=== PATIENT | female | born 1965 | race Caucasian/White ===

== ENCOUNTER 2018-05-23 11:09 | Outpatient (CLI) | payer OTHER, SELFPAY ==
[2018-05-23 11:51] LABS: Bilirubin Negative (Negative); Blood Trace-intact (Negative); Clarity Clear; Glucose Negative (Negative); Ketones Negative (Negative); Leukocyte Esterase Trace (Negative); Nitrite Negative (Negative); Specific Gravity 1.015 (1.005-1.025); Urobilinogen 0.2 EU/dL (Up TO 0.2)
[2018-05-23 12:06] LABS: Epithelial Cells Moderate HPF (Negative)
[2018-05-23 12:07] LABS: Bacteria Rare HPF (Negative); C & S Indicated? No/Sq. Contamination; Crystals Negative HPF (Negative); Mucus Trace (Negative); Other Cells Mod Transitional (Negative)
== END 2018-05-23 11:29 ==
PROVIDERS: PCP Family Medicine
DX: N39.0 Urinary tract infection, site not specified (principal)
CPT/HCPCS: 81003; 81015

== ENCOUNTER 2019-04-05 00:31 | Outpatient (CLI) | payer OTHER, SELFPAY ==
--- NOTE | 2019-04-05 07:39 | DI.MAMMO_ITS ---
EXAM: MAMMO SCREENING CLINICAL HISTORY: SCREENING, Z12.39 TECHNIQUE: Mammograms were interpreted according to the usual protocol including computer analysis w [employer] CAD system, tomosynthesis and C-view imaging. COMPARISON FINDINGS: The breasts are heterogeneously dense. No dominant mass or clumped microcalcification is identified in either breast. Current examination is compared with previous examinations including October and there has been no gross interval change in appearance in comparison with the previous studies. IMPRESSION: No specific evidence of malignancy at this time. Routine screening examinations are suggested at year ly intervals in this age group according the ACS ACR guidelines. Category 1. Breast density, category C. BI-RADS Cat 1 - Negative. Breast Density - Category C - Heterogeneously dense.
== END 2019-04-05 00:51 ==
PROVIDERS: PCP Family Medicine; Visit Provider Nurse Practitioner Family
DX: Z12.31 Encounter for screening mammogram for malignant neoplasm of breast (principal)
CPT/HCPCS: 77063; 77067

== ENCOUNTER 2019-12-20 17:13 | Outpatient (REF) | payer OTHER, SELFPAY ==
[2019-12-25 12:12] LABS: Helicobacter pylori Ag, Feces Negative (Negative)
== END 2019-12-20 17:33 ==
LOC: NCHCN 17:13
PROVIDERS: PCP Family Medicine; Visit Provider Nurse Practitioner Family
DX: R10.13 Epigastric pain (principal)
CPT/HCPCS: 87338

== ENCOUNTER 2020-11-21 20:28 | Outpatient (REF) | payer OTHER, SELFPAY ==
[2020-11-23 15:43] LABS: COVID-19 RT-PCR UVMMC Result Negative (Negative)
== END 2020-11-21 20:29 | disposition home or self-care (01) ==
LOC: NCHCN 20:28
PROVIDERS: PCP Family Medicine; Visit Provider Nurse Practitioner Family
DX: Z20.822 Contact with and (suspected) exposure to COVID-19 (principal); J06.9 Acute upper respiratory infection, unspecified
CPT/HCPCS: U0003

== ENCOUNTER 2022-03-30 18:52 | Outpatient (REF) | payer OTHER, SELFPAY ==
[2022-03-30 19:09] LABS: HCT 43.2 % (36.0-46.0); HGB 14.4 g/dL (11.2-15.7); MCH 30.3 pg (27.0-33.0); MCHC 33.3 % (32.0-36.0); MCV 91 fL (80-95); MPV 11.5 fL (8.0-11.0); Platelet Count 256 10^3/uL (130-400); RBC 4.75 10^6/uL (3.93-5.22); RDW 12.1 % (11.7-14.6); RDW-SD 40.5 fL
[2022-03-30 19:22] LABS: ALT 25 U/L (14-59); AST 27 U/L (15-37); Albumin 4.4 g/dL (3.4-5.0); Alkaline Phosphatase 66 U/L (46-116); Anion Gap 5.5 mmol/L (3-11); BUN 21 mg/dL (7-18); Bilirubin, Total 0.5 mg/dL (0.2-1.0); CO2 31.5 mmol/L (21.0-32.0); Calcium 9.7 mg/dL (8.5-10.1); Chloride 103 mmol/L (98-107); Estimated GFR 66.12 (mL/min/1.73m2); Glucose 101 mg/dL (74-106); Potassium 4.4 mmol/L (3.5-5.1); Sodium 140 mmol/L (136-145); Total Protein 7.5 g/dL (6.4-8.2)
[2022-03-30 19:35] LABS: Hemoglobin A1C 5.3 % (<5.7)
== END 2022-03-30 18:53 | disposition home or self-care (01) ==
LOC: NCHCN 18:52
PROVIDERS: PCP Family Medicine; Visit Provider Nurse Practitioner Family
DX: R55 Syncope and collapse (principal); Z13.1 Encounter for screening for diabetes mellitus; Z83.3 Family history of diabetes mellitus
CPT/HCPCS: 80053; 85027; 83036

== ENCOUNTER 2022-04-16 08:53 | Outpatient (RCR) | payer OTHER, SELFPAY ==
--- NOTE | 2022-04-16 07:45 | HOLTER_ITS ---
APPROVED REPORT Conclusion This is a 48-hour Holter monitor ordered for syncope Rhythm throughout is sinus with an average heart rate of 73. Minimum was 56, maximum 118 A total of 4 isolated PVCs were seen. There were 7 atrial premature beats There was no atrial fibrillation no high-grade AV block no pauses greater than 3 seconds
== END 2022-04-27 23:59 | disposition home or self-care (01) ==
LOC: CARDOPNVT 08:53
PROVIDERS: PCP Family Medicine; Visit Provider Nurse Practitioner Family
DX: R55 Syncope and collapse (principal); I49.3 Ventricular premature depolarization
CPT/HCPCS: 93227; 93225; 93226